=== PATIENT | male | born 1970 | race Two or more races ===

== ENCOUNTER 2025-02-04 13:16 | Emergency (ER) | payer MEDICAID, OTHER ==
[~2025-02-04] VITALS: Ht 165.1 cm; Wt 71.5 kg
--- NOTE | 2025-02-04 13:33 | ED.PDOC ---
History of Present Illness(SKN HPI Comments A 54 year old female presents to the ED c/o rash. Patient states he has a history of psoriasis and has been experiencing and itchy and burning rash on his abdomen, chest, back, and bilateral arms for the past 10 days. Patient reports he has not had a psoriasis flare in several years and has not seen a derm atologist in several years either. Patient denies fever, SOB, chest pain, abdominal pain, nausea, vomiting, diarrhea, headache, dizziness. No other symptoms or modifying factors reported at this time. Patient is alert and oriented x4 and has a stable gait. Chief Complaint: Rash Time Seen by MD: 13:19 History of Present Illness: Nurses Notes, Medications, Allergies Information Source: Patient Mode of Arrival: Ambulatory Severity: Moderate Timing: Days Duration: Since onset, Other Prehospital treatment: None Location: Abdomen, Arm, Back, Chest Mechanism: Spontaneous Onset Developed: Rash Occurence: Indoors Object: None Condition of Object: None Retained Foreign Body: No Wound Type: None Immunization Status of Animal: NA Tetanus: Unknown History of: None Associated Signs and Symptoms: Redness, Pain Past Medical History Past Medical History (Other): Psoriasis Surgical History: Denies all surgeries 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 Family History Family History: Reviewed,noncontributory to illness Social History Smoker: Non-Smoker Alcohol: Denies ETOH Use Drugs: Denies Drug Use Lives In: Home Constitutional: denies: chills, diaphoresis, fatigue, fever, malaise, sweats, weakness, others EENTM: denies: blurred vision, double vision, ear bleeding, ear discharge, ear drainage, ear pain, ear ringing, eye pain, eye redness, hearing loss, mouth pain, mouth swelling, nasal discharge, nose bleeding, nose congestion, nose pain, photophobia, tearing, throat pain, throat swelling, voice changes, others Respiratory: denies: cough, hemoptysis, orthopnea, SOB at rest, shortness of breath, SOB with excertion, stridor, wheezing, others Cardiovascular: denies: chest pain, dizzy spells, diaphoresis, Dyspnea on exertion, edema, irregular heart beat, left arm pain, lightheadedness, palpi tations, PND, syncope, others Gastrointestinal: denies: abdomen distended, abdominal pain, blood streaked bowels, constipated, diarrhea, dysphagia, difficulty swallowing, hematemesis, melena, nausea, poor appetite, poor fluid intake, rectal bleeding, rectal pain, vomiting, others Genitourinary: denies: abnormal vagina bleeding, burning, dyspareunia, dysuria, flank pain, frequency, hematuria, incontinence, pain, , vagina discharge, urgency, others Neurological: denies: dizziness, fainting, headache, left sided numbness, left sided weakness, numbness, paresthesia, pre-existing deficit, right sided numbness, right sided weakness, seizure, speech problems, tingling, tremors, weakness, others Musculoskeletal: denies: back pain, gout, joint pain, joint swelling, muscle pain, muscle stiffness, neck pain, others Integumetry: reports: rash; denies: bruises, change in color, change in hair/nails, dryness, laceration, lesions, lumps, wounds, others Allergic/Immunocompromised: denies: Difficulty Healing, Frequent Infections, Hives, Itching, others Hematologic/Lymphatic: denies: anemia, blood clots, easy bleeding, easy bruising, swollen glands, others Endocrine: denies: excessive hunger, excessive sweating, excessive thirst, excessive urination, flushing, intolerance to cold, intolerance to heat, unexplained weight gain, unexplained weight loss, others Psychiatric: denies: anxiety, bipolar disorder, depression, hopeless, panic disorder, schizophrenia, sleepless, suicidal, others All Other Systems: Reviewed and Negative Physical Exam General Appearance: No Apparent Distress, Normal HEENT: Normal ENT Inspection, Pharynx Normal, TMs Normal Neck: Full Range of Motion, Non-Tender, Normal, Normal Inspection Respiratory: Chest Non-Tender, Lungs Clear, No Accessory Muscle Use, No Respiratory Distress, Normal Breath Sounds Cardiovascular: No Edema, No JVD, No Murmur, No Gallop, Normal Peripheral Pulses, Regular Rate/Rhythm Breast Exam: Deferred Gastrointestinal: No Organomegaly, Non Tender, No Pulsatile Mass, Normal Bowel Sounds, Soft Genitalia: Deferred Pelvic: Deferred Rectal: Deferred Extremities: No calf tenderness, Normal capillary refill, Normal inspection, Normal range of motion, Non-tender, No pedal edema Musculoskeletal : Apperance: Normal Neurologic: Alert, general manager farm II-XII nml as Tested, No Motor Deficits, Normal Affect, Normal Mood, No Sensory Deficits Cerebellar Function: Normal Reflexes: Normal Skin: Dry, Warm, Other (Diffuse, dry, patchy welt skin rash noted.) Lymphatic: No Adenopathy Was a procedure done? Was a procedure done?: No Differential Diagnosis (INTG) Differential Diagnosis: N/A Differential Diagnosis: Atopic dermatitis, Cellulitis, Contact Dermatitis, Erysipelas, Psoriasis, Tinea, Urticaria Differential Diagnosis: N/A Abscess: N/A Differential Diagnosis: N/A X-Ray, Labs, Meds, VS Vital Signs Date Time Temp Pulse Resp B/P (MAP) Pulse Ox O2 Delivery O2 Flow Rate FiO2 02/04/25 13:50 78 18 97 Room Air* 0 21 02/04/25 13:50 97.4 78 18 138/77 (97) 97 97.4 02/04/25 13:20 97.4 78 18 138/77 (97) 97 97.4 Current Medications Medications (Trade) Dose Ordered Sig/Zia Route Start Time Stop Time Status Last Admin Dexamethasone Sodium Phosphate (Decadron Injection) 4 mg ONCE ONCE IV 02/04/25 13:30 02/04/25 13:31 DC 02/04/25 13:43 Diphenhydramine HCl (Benadryl Injection) 50 mg ONCE ONCE IV 02/04/25 13:30 02/04/25 13:31 DC 02/04/25 13:43 X-Ray, Labs, Meds, VS Comment External medical records reviewed: [None] Independent historians: [None] Social determinants of health: [None] Labs ordered: None Reviewed and interpreted results: None Radiology imaging ordered: None Treatments ordered: Benadryl 50mg IV, Decadron 4mg IV Procedures performed: None Critical care time: None Based on the history of present illness and physical exam, patient will be discharged home. Discussed plan for discharge home with Rx []. Medications warnings given. Shared decision making: Discussed with patient their workup was normal. Patient instructed to follow up with their primary care physician in 1-2 days for re- evaluation of symptoms. Patient verbalizes understanding to return to ED for new or worsening symptoms of if follow up with PCP cannot be obtained. Patient understands and feels comfortable going home at this time. All questions addressed at time of discharge. Time of 1ST Reevaluation: 15:57 Reevaluation 1ST: Improved Patient Education/Counseling: Diagnosis, Treatment, Prognosis, Need For Follow Up Family Education/Counseling: No Family Present Departure 1 Departure Time of Disposition: 15:57 Impression: Primary Impression: Psoriasis Disposition: 01 HOME / SELF CARE / HOMELESS Condition: Stable Additional Instructions: Follow up with PCP in 1-2 days. Take medications as prescribed. Return to ED for any new or worsening symptoms. e-Prescriptions Hydralazine HCl (Hydralazine HCl) 25 Mg Tab 25 MG PO Q4HP PRN, #20 TAB Prov: ROBERT BENEDICT MD 02/04/25 Prednisone (Prednisone) 20 Mg Tab 20 MG PO DAILY for 5 Days, #5 MG Prov: ROBERT BENEDICT MD 02/04/25 Discharged With: Self Critical Care Note Critical Care Time?: No Stability Stability form required: No I personally scribed for ROBERT BENEDICT MD ([facility]) on 02/04/25 at 13:33. Clair ctronically submitted by Miguel Snider ([email or web address]). I personally scribed for ROBERT BENEDICT MD ([email or web address]) on 02/04/25 at 13:39. Clair ctronically submitted by Miguel Snider ([email or web address]). ROBERT BENEDICT MD Feb 04, 2025 13:33
[2025-02-04] MEDS: DexAMETHasone SOD PHOS 4 MG/1ML SDV INJ IV ONE (13:43)
[2025-02-04] MEDS: diphenhdrAMINE HCL 50 MG/1 ML VL IV ONE (13:43)
[2025-02-04 13:50] VITALS: BP 138/77; PULSE 78; RESP 18; TEMP 97.4; O2SAT 97
[2025-02-04] MEDS ORDERED: HYDR25TA87 PO (15:59)
[2025-02-04] MEDS ORDERED: PRED20TA2 PO (15:59)
== END 2025-02-04 17:47 | disposition home or self-care (01) ==
LOC: EDSEX → ER 13:22
DX: L40.9 Psoriasis, unspecified (principal)
CPT/HCPCS: 96374; 96375; 99284; J1200; J1100

== ENCOUNTER 2025-02-09 17:00 | Emergency (ER) | payer MEDICAID ==
[~2025-02-09] VITALS: Ht 165.1 cm; Wt 73.3 kg
[~2025-02-09 17:00] MED LIST: HYDR25TA87 PO; PRED20TA2 PO
[2025-02-09] MEDS ORDERED: HYD25TP TOP (19:11)
--- NOTE | 2025-02-09 19:11 | ED.PDOC ---
History of Present Illness(SKN HPI Comments 54 year old male presents to ER with complaints rash x 2 days. Patient with PMH of psoriasis states he has been experiencing a "psoriasis flare-up" diffuse to his body x2 days. Reports that he was seen and evaluated for similar symptoms in ER here five days ago and given an "injection of a steroid" at that time that he states gave him great relief. Denies any pain. Patient presents to ER ambulatory on arrival, with steady gait, in no distress. Denies fever, body aches, chills, skin drainage or any further symptoms/complaints Chief Complaint: Rash Time Seen by MD: 18:10 Primary Care Provider: BUCK History of Present Illness: Nurses Notes, Medications, Allergies Allergies: Coded Allergies: NO KNOWN ALLERGIES (Unverified , 02/09/25) Home Meds Active Scripts Hydrocortone (Hydrocortisone 2.5%) 1 Applic Ap, 1 APPLIC TOP BIDP, #1 CRE 0 Refills Prov:CK JACQUES 02/09/25 Hydralazine HCl (Hydralazine HCl) 25 Mg Tab, 25 MG PO Q4HP PRN, #20 TAB Prov:ROBERT BENEDICT MD 02/04/25 Prednisone (Prednisone) 20 Mg Tab, 20 MG PO DAILY for 5 Days, #5 MG Prov:ROBERT BENEDICT MD 02/04/25 Information Source: Patient Mode of Arrival: Ambulatory Past Medical History Past Medical History (Other): Psoriasis Surgical History: Denies all surgeries 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 Family History Family History: Unknown Social History Smoker: Non-Smoker Alcohol: Denies ETOH Use Drugs: Denies Drug Use Lives In: Home Constitutional: denies: chills, diaphoresis, fatigue, fever, malaise, sweats, weakness, others EENTM: denies: blurred vision, double vision, ear bleeding, ear discharge, ear drainage, ear pain, ear ringing, eye pain, eye redness, hearing loss, mouth pain, mouth swelling, nasal discharge, nose bleeding, nose congestion, nose pain, photophobia, tearing, throat pain, throat swelling, voice changes, others Respiratory: denies: cough, hemoptysis, orthopnea, SOB at rest, shortness of breath, SOB with excertion, stridor, wheezing, others Cardiovascular: denies: chest pain, dizzy spells, diaphoresis, Dyspnea on exertion, edema, irregular heart beat, left arm pain, lightheadedness, palpitations, PND, syncope, others Gastrointestinal: denies: abdomen distended, abdominal pain, blood streaked bowels, constipated, diarrhea, dysphagia, difficulty swallowing, hematemesis, melena, nausea, poor appetite, poor fluid intake, rectal bleeding, rectal pain, vomiting, others Genitourinary: denies: abnormal vagina bleeding, burning, dyspareunia, dysuria, flank pain, frequency, hematuria, incontinence, pain, , vagina discharge, urgency, others Neurological: denies: dizziness, fainting, headache, left sided numbness, left sided weakness, numbness, paresthesia, pre-existing deficit, right sided numbness, right sided weakness, seizure, speech problems, tingling, tremors, weakness, others Musculoskeletal: denies: back pain, gout, joint pain, joint swelling, muscle pain, muscle stiffness, neck pain, others Integumetry: reports: others (As stated in HPI) Allergic/Immunocompromised: reports: others (As stated in HPI) Hematologic/Lymphatic: denies: anemia, blood clots, easy bleeding, easy bruising, swollen glands, others Endocrine: denies: excessive hunger, excessive sweating, excessive thirst, excessive urination, flushing, intolerance to cold, intolerance to heat, unexplained weight gain, unexplained weight loss, others Psychiatric: denies: anxiety, bipolar disorder, depression, hopeless, panic disorder, schizophrenia, sleepless, suicidal, others Physical Exam General Appearance: No Apparent Distress HEENT: Normal ENT Inspection, PERRL/EOMI, Pharynx Normal Neck: Full Range of Motion, Non-Tender, Normal Respiratory: Chest Non-Tender, Lungs Clear, No Accessory Muscle Use, No Respiratory Distress, Normal Breath Sounds Cardiovascular: No Murmur, No Gallop, Regular Rate/Rhythm Breast Exam: Deferred Gastrointestinal: NOT DONE Genitalia: Deferred Pelvic: Deferred Rectal: Deferred Extremities: Normal capillary refill, Normal range of motion Neurologic: Alert, No Motor Deficits, Normal Affect, Normal Mood, No Sensory Deficits Cerebellar Function: Normal Reflexes: Normal Skin: Dry, Warm, Other (Erythematous papules noted to chest, abdomen, back, bilateral arms and bilateral legs. No plaques/white scales appreciated. ) Peripheral Pulses: 2+ Radial (R), 2+ Radial (L), 2+ Brachial (R), 2+ Brachial (L) Lymphatic: No Adenopathy Was a procedure done? Was a procedure done?: No Sedation Sedation?: No Differential Diagnosis (INTG) Differential Diagnosis: Atopic dermatitis, Contact Dermatitis Differential Diagnosis: Cellulitis, Other (Anaphylaxis) X-Ray, Labs, Meds, VS Vital Signs Date Time Temp Pulse Resp B/P (MAP) Pulse Ox O2 Delivery O2 Flow Rate FiO2 02/09/25 18:04 97.5 56 18 142/88 (106) 97 97.5 Benadryl 25 mg IM ordered Solu-Medrol 125 mg IM ordered Patient had improvement in symptoms and in no distress prior to discharge Advised to follow up with PCP and privacy director in 1-2 days Patient verbalized understanding and agreeable with current plan of care Advised to return to ER immediately if symptoms worsen Time of 1ST Reevaluation: 18:44 Reevaluation 1ST: N/A Patient Education/Counseling: Diagnosis, Treatment, Prognosis, Need For Follow Up Family Education/Counseling: No Family Present SEPSIS Sepsis Screen Date sepsis recognized/suspect: Feb 09, 2025 Time Sepsis recognized/suspect: 1741 Recent Procedure: No On Antibiotic Therapy: No Respiratory Rate >20: No Heart Rate >90: No Temp<36 C (96.8 F) or >38.3 C: No SBP <90 or MAP <65 mmHG: No New Acute Mental Status Change: No Is the patient on CPAP, BIPAP,: No Orders/Vitals/Labs Physician Orders Methylprednisolone Sod Succ (Solu Medrol (02/09/25 19:15) Diphenhdramine Injection (Benadryl Injec (02/09/25 19:15) Vital Signs Date Time Temp Pulse Resp B/P (MAP) Pulse Ox O2 Delivery O2 Flow Rate FiO2 02/09/25 18:04 97.5 56 18 142/88 (106) 97 97.5 Departure 1 Departure Time of Disposition: 19:02 Impression: Primary Impression: Psoriasis Disposition: HOME / SELF CARE / HOMELESS Condition: Stable e-Prescriptions Hydrocortone (Hydrocortisone 2.5%) 1 Applic Ap 1 APPLIC TOP BIDP, #1 CRE 0 Refills Prov: CK JACQUES 02/09/25 Discharged With: Friend Critical Care Note Critical Care Time?: No Stability Stability form required: No Heart Score Heart Score: Heart Score Response (Comments) Value History N/A 0 EKG N/A 0 Age N/A 0 Risk Factors N/A 0 Troponin N/A 0 Total 0 CK JACQUES Feb 09, 2025 19:11
[2025-02-09 19:20] VITALS: BP 142/88; PULSE 56; RESP 18; TEMP 97.2; O2SAT 97
[2025-02-09] MEDS: diphenhdrAMINE HCL 50 MG/1 ML VL IM ONE (19:32)
[2025-02-09] MEDS: methylPREDNISolone SOD SUCC 125 MG/2 ML VL IM ONE (19:33)
== END 2025-02-09 19:34 | disposition home or self-care (01) ==
LOC: EDSEX 17:00 → ER 17:00
DX: L40.9 Psoriasis, unspecified (principal); Z79.52 Long term (current) use of systemic steroids; Z79.899 Other long term (current) drug therapy